=== PATIENT | female | born 1950 | race Caucasian/White ===

== ENCOUNTER 2019-10-09 15:37 | Emergency (ER) | payer MEDICARE ==
[~2019-10-09] VITALS: Ht 167.6 cm; Wt 89.6 kg
[2019-10-09] MEDS ORDERED: normal saline 1000ML IV soln IVB ONE (16:20)
[2019-10-09] MEDS ORDERED: ondansetron/PF 4mg/2ml inj IV ONE (16:20)
[2019-10-09] MEDS ORDERED: propofol 10mg/ml 20ml vial IV ONE (16:20)
[2019-10-09] MEDS ORDERED: HYDR-4383 PO (17:35)
[2019-10-09 18:03] VITALS: BP 143/77
== END 2019-10-09 18:03 | disposition home or self-care (01) ==
LOC: ER 15:38
DX: S43.084A Other dislocation of right shoulder joint, initial encounter (principal); W01.0XXA Fall on same level from slipping, tripping and stumbling without subsequent striking against object, initial encounter; Y93.89 Activity, other specified; Y92.89 Other specified places as the place of occurrence of the external cause; Y99.8 Other external cause status
CPT/HCPCS: 23650; 73020; 73030; 96374; 99152; 99285; J2405; J2704; J7040; 94760; 99153